=== PATIENT | female | born 1970 | race Caucasian/White ===

== ENCOUNTER 2016-07-11 13:56 | Emergency (ER) | payer BC ==
[~2016-07-11] VITALS: Ht 154.9 cm; Wt 60.3 kg
[2016-07-11] MEDS ORDERED: Morphine Sulfate 4mg/ml Inj IVP ONE (14:15)
--- NOTE | 2016-07-11 14:32 | Emergency Room Report ---
History of Present Illness General Chief Complaint: Abdominal Pain Source: Patient, EMS Present Illness HPI This patient states that she has had right lower quadrant abdominal pain that she describes as a twisting sensation. She states the pain is severe and waxes and wanes in severity. She states that this first began 4-5 days ago. She states that she also took a test 4 days ago that initially was positive. However, she states that she took a repeat test at home an hour later was negative. She also and saw her primary care physician and the test was negative. However, she states that she felt symptoms over the past couple weeks. She states she describes this as breast tenderness, headache, fatigue, nausea, depression. This has occurred her to do a home test. She states that she does have regular menstrual periods was late this month by 2 days. She states she thought she may be perimenopausal. She has had nausea but denies vomiting. She has had normal bowel movements. She denies fever or chills. She states that she has had a dry cough with some chest pain that she is unable to fully articulate when it first started. She has no other complaints. Allergies: Coded Allergies: AMOXICILLIN (Verified Allergy, Unknown, 07/11/16) Uncoded Allergies: SULFA (Allergy, Unknown, 07/11/16) Patient History Past Medical History: see triage record, psych hx Past Surgical History: , other - ectopic Social History: Denies: alcohol use, drug use, smoking Last Menstrual Period: 06/10/16 (ectopic 2006) : 3 Para: 2 Reviewed Nursing Documentation: PMH: Agreed, PSxH: Agreed Nursing Documentation-PMH Past Medical History: No History, Except For Review of Systems All Other Systems: negative except mentioned in HPI Physical Exam Vital Signs Date Time Temp Pulse Resp B/P Pulse Ox O2 Delivery O2 Flow Rate FiO2 07/11/16 13:54 98.2 109 20 108/78 100 Room Air Sp02 EP Interpretation: reviewed, normal General Appearance: no apparent distress, alert, GCS 15, non-toxic Head: normocephalic, atraumatic Eyes: bilateral eye PERRL, bilateral eye normal inspection ENT: hearing grossly normal, normal pharynx, no angioedema, normal voice Neck: full range of motion, supple/symm/no masses Respiratory: chest non-tender, lungs clear, normal breath sounds, speaking full sentences Cardiovascular #1: regular rate, rhythm, no edema Gastrointestinal: normal bowel sounds, soft, non-distended, no guarding, no rebound, tenderness - RLQ/R. pelvis Rectal: deferred Musculoskeletal: back normal, gait/station normal, normal range of motion, non- tender Neurologic: alert, oriented x3, responsive, motor strength/tone normal, sensory intact, speech normal Psychiatric: judgement/insight normal, memory normal, mood/affect normal, no suicidal/homicidal ideation Skin: normal color, no rash, warm/dry, well hydrated Medical Decision Making Diagnostic Impression: Primary Impression: Ovarian cyst Additional Impression: Abdominal bloating associated with menstruation ER Course This patient presented with right lower quadrant pain. I was concerned that this was pelvic/ovarian in etiology. I was also considering ectopic given the patient's history and there was a previous positive test. However, there is no evidence of ectopic on ultrasound and test is negative. Patient is found to have ovarian cysts. This could be the etiology of of the patient's pain. I also obtained a CT abdomen and pelvis and there was no acute findings. Specifically no evidence of appendicitis. Urinalysis showed no evidence of infection. Patient also has symptoms consistent with hormonal changes. Possibly anovulation versus perimenopausal. Regardless, I did not identify an emergency medical condition. The patient instructed to followup closely with her primary care physician her primary OB. Patient given close return precautions. Labs Test 07/11/16 14:45 White Blood Count 12.4 K/UL (4.8-10.8) Red Blood Count 4.81 M/UL (4.20-5.40) Hemoglobin 10.9 G/DL (12.0-16.0) Hematocrit 35.4 % (37.0-47.0) Mean Corpuscular Volume 74 FL (80-99) Mean Corpuscular Hemoglobin 22.8 PG (27.0-31.0) Mean Corpuscular Hemoglobin Concent 30.9 G/DL (32.0-36.0) Red Cell Distribution Width 12.0 % (11.6-14.8) Platelet Count 258 K/UL (150-450) Mean Platelet Volume 6.7 FL (6.5-10.1) Neutrophils (%) (Auto) 72.2 % (45.0-75.0) Lymphocytes (%) (Auto) 22.5 % (20.0-45.0) Monocytes (%) (Auto) 4.6 % (1.0-10.0) Eosinophils (%) (Auto) 0.3 % (0.0-3.0) Basophils (%) (Auto) 0.4 % (0.0-2.0) Prothrombin Time 9.7 SEC (9.30-11.50) Prothromb Time International Ratio 1.0 (0.9-1.1) Activated Partial Thromboplast Time 28 SEC (23-33) Urine Color Pale yellow Urine Appearance Clear Urine pH 8 (4.5-8.0) Urine Specific [place] 1.010 (1.005-1.035) Urine Protein Negative (NEGATIVE) Urine Glucose (UA) Negative (NEGATIVE) Urine Ketones Negative (NEGATIVE) Urine Occult Blood Negative (NEGATIVE) Urine Nitrite Negative (NEGATIVE) Urine Bilirubin Negative (NEGATIVE) Urine Urobilinogen Normal MG/DL (0.0-1.0) Urine Leukocyte Esterase Negative (NEGATIVE) Urine HCG, Qualitative Negative Sodium Level 139 mEQ/L (135-145) Potassium Level 3.7 mEQ/L (3.4-4.9) Chloride Level 99 mEQ/L (98-107) Carbon Dioxide Level 19 mEQ/L (20-30) Anion Gap 21 (5-15) Blood Urea Nitrogen 12 mg/dL (7-23) Creatinine 0.9 mg/dL (0.5-0.9) Estimat Glomerular Filtration Rate > 60 mL/min (>60) Glucose Level 98 mg/dL (74-106) Calcium Level 9.7 mg/dL (8.6-10.2) Total Bilirubin 0.3 mg/dL (0.0-1.2) Aspartate Amino Transf (AST/SGOT) 27 U/L (5-40) Alanine Aminotransferase (ALT/SGPT) 16 U/L (3-33) Alkaline Phosphatase 47 U/L (35-104) Total Protein 7.4 g/dL (6.6-8.7) Albumin 4.5 g/dL (3.5-5.2) Globulin 2.9 g/dL Albumin/Globulin Ratio 1.5 (1.0-2.7) Thyroid Stimulating Hormone (TSH) 2.170 uIU/mL (0.300-4.500) Free Thyroxine 1.54 ng/dL (0.86-1.85) Free Triiodothyronine 2.3 pg/mL (2.3-4.2) Human Chorionic Gonadotropin, Quant < 1 mIU/mL CT/MRI/US Diagnostic Results CT/MRI/US Diagnostic Results : Imaging Test Ordered: Pelvis US, CT abd/pelvis Impression Impression: No acute abnormality Bilateral hemorrhagic ovarian follicles Trace free pelvic fluid, presumed physiologic Uterine fibroids Negative for adnexal mass CT abd/pelvis: Bilateral ovarian cysts. Appendix not seen but no secondary signs of appendicitis. No hydronephrosis. Tiny renal cysts. Last Vital Signs Date Time Temp Pulse Resp B/P Pulse Ox O2 Delivery O2 Flow Rate FiO2 07/11/16 13:54 98.2 109 20 108/78 100 Room Air Status: improved Disposition: HOME, SELF-CARE Condition: Stable Patient Instructions: Abdominal Pain, Adult BENNIE VILLAGOMEZ D.O. Jul 11, 2016 14:32
[2016-07-11 15:11] LABS: BASOPHILS % (AUTO) 0.4 % (0.0-2.0); EOSINOPHILS % (AUTO) 0.3 % (0.0-3.0); LYMPHOCYTES % (AUTO) 22.5 % (20.0-45.0); MEAN CORPUSCULAR HEMOGLOBIN 22.8 PG (27.0-31.0); MEAN CORPUSCULAR HGB CONC 30.9 G/DL (32.0-36.0); MEAN CORPUSCULAR VOLUME 74 FL (80-99); MEAN PLATELET VOLUME 6.7 FL (6.5-10.1); MONOCYTES % (AUTO) 4.6 % (1.0-10.0); NEUTROPHILS % (AUTO) 72.2 % (45.0-75.0); PLATELET COUNT 258 K/UL (150-450); RED BLOOD COUNT 4.81 M/UL (4.20-5.40); WHITE BLOOD COUNT 12.4 K/UL (4.8-10.8)
[2016-07-11 15:23] LABS: APPEARANCE,URINE CLEAR; KETONES,URINE NEGATIVE (NEGATIVE); LEUKOCYTE ESTERASE ,URINE NEGATIVE (NEGATIVE); NITRITE,URINE NEGATIVE (NEGATIVE); PH,URINE 8 (4.5-8.0); PROTEIN,URINE NEGATIVE (NEGATIVE); UROBILINOGEN,URINE NORMAL MG/DL (0.0-1.0)
[2016-07-11] MEDS ORDERED: CYMBALTA30 MG ORAL (15:32)
[2016-07-11] MEDS ORDERED: AMPHETAMINE SALT5 MG PO (15:32)
[2016-07-11] MEDS ORDERED: LEVOTHYROXINE25 MCG ORAL (15:32)
[2016-07-11] MEDS ORDERED: VITAMIN D400 INTLU ORAL (15:32)
[2016-07-11] MEDS ORDERED: ZONEGRAN100 MG ORAL (15:32)
[2016-07-11] MEDS ORDERED: KEPPRA XR500 MG ORAL (15:32)
[2016-07-11] MEDS ORDERED: KLONOPIN1 MG ORAL (15:32)
[2016-07-11] MEDS ORDERED: NARATRIPTAN2.5 MG ORAL (15:32)
[2016-07-11] MEDS ORDERED: DEPLIN-ALGAL O1 EAC1 PO (15:32)
[2016-07-11 15:37] LABS: ALANINE AMINOTRANSFERASE 16 U/L (3-33); ALBUMIN/GLOBULIN RATIO 1.5 (1.0-2.7); ANION GAP 21 (5-15); ASPARTATE AMINO TRANSFERASE 27 U/L (5-40); CALCIUM 9.7 mg/dL (8.6-10.2); CARBON DIOXIDE 19 mEQ/L (20-30); CHLORIDE 99 mEQ/L (98-107); CREATININE 0.9 mg/dL (0.5-0.9); GLOMERULAR FILTRATION RATE > 60 mL/min (>60); HEMOLYSIS 54; POTASSIUM 3.7 mEQ/L (3.4-4.9); SODIUM 139 mEQ/L (135-145); TOTAL PROTEIN 7.4 g/dL (6.6-8.7)
[2016-07-11 15:46] LABS: PROTHROMBIN TIME 9.7 SEC (9.30-11.50)
[2016-07-11 15:48] LABS: FREE T3 2.3 pg/mL (2.3-4.2)
--- NOTE | 2016-07-11 17:12 | Diagnostic Imaging Report ---
Indication: PAIN, negative test Technique: Transabdominal and transvaginal images Comparison: None Findings: Uterus measures 9.9 cm length by 3.7 cm AP. The endometrium measures 8 mm thick. There are multiple myometrial fibroids. The right ovary measures 3.8 cm in length. The left ovary measures 4.6 cm in length. Some hemorrhagic follicles are demonstrated bilaterally, including a 2.6 cm partially collapsed follicle the left ovary. There is a trace amount free fluid in the pelvic cul-de-sac. Impression: No acute abnormality Bilateral hemorrhagic ovarian follicles Trace free pelvic fluid, presumed physiologic Uterine fibroids Negative for adnexal mass
[2016-07-11 18:09] VITALS: BP 118/62
[2016-07-11] MEDS ORDERED: IBUPROFEN600 MG ORAL (19:07)
[2016-07-11 19:44] VITALS: BP 104/65
[2016-07-11 19:47] VITALS: BP 104/65
--- NOTE | 2016-07-12 09:40 | Diagnostic Imaging Report ---
Indication: Abdominal pain Technique: Continuous helical transaxial imaging of the abdomen and pelvis was obtained from the lung bases to the pubic symphysis during intravenous contrast administration. Coronal 2-D reformats were also obtained. Study obtained in a Siemens sensation [address] Total Dose length Product (DLP): [address] Dose Index Volume (CTDIvol): 16 mGy Comparison: None Findings: The lung bases are clear. There are multiple cysts within the adnexa bilaterally likely ovarian. The most prominent cyst in the left ovary is about 2.4 x 1.4 CM. Right ovarian cyst for example measuring 2 CM. Some rim enhancement is noted. Evaluation with ultrasound could be done as warranted. Appendix not definitely seen. There are no secondary signs of appendicitis. Moderate fecal retention noted in the colon. No free fluid or free air identified. Uterus noted. Bladder is unremarkable. Solid organs are unremarkable. Gallbladder is unremarkable. There is no hydronephrosis. Impression: Bilateral ovarian cysts. Evaluation with ultrasound could be done as warranted clinically. No evidence of acute appendicitis. The CT scanner at [facility] is accredited by the [employer] and the scans are performed using protocols designed to limit radiation exposure to as low as reasonably achievable to attain images of sufficient resolution adequate for diagnostic evaluation.
== END 2016-07-11 19:52 | disposition home or self-care (01) ==
LOC: EDBD 13:56 → EMR 15:55
DX: N83.202 Unspecified ovarian cyst, left side (principal); R14.0 Abdominal distension (gaseous); N83.201 Unspecified ovarian cyst, right side; D25.9 Leiomyoma of uterus, unspecified; Z88.0 Allergy status to penicillin; Z88.2 Allergy status to sulfonamides
CPT/HCPCS: 36415; 74177; 76830; 76856; 80053; 81003; 81025; 84439; 84443; 84481; 84702; 85025; 85610; 85730; 86850; 86900; 86901; 96360; 96361; 96374; 96375; 99284; J2270; J2405; Q9967